=== PATIENT | male | born 1955 | race Caucasian/White ===

== ENCOUNTER 2025-04-26 02:44 | Emergency (ER) | payer OTHER ==
[~2025-04-26] VITALS: Ht 175.2 cm; Wt 132.9 kg
[2025-04-26] MEDS ORDERED: VIBRAMYCIN100 MG PO (03:19)
== END 2025-04-26 03:23 | disposition home or self-care (01) ==
LOC: ED 02:44
DX: L73.2 Hidradenitis suppurativa (principal); Z88.8 Allergy status to other drugs, medicaments and biological substances

== ENCOUNTER 2025-05-11 11:14 | Emergency (ER) | payer OTHER ==
[~2025-05-11] VITALS: Ht 175.2 cm; Wt 136.1 kg
[~2025-05-11 11:14] MED LIST: VIBRAMYCIN100 MG PO
[2025-05-11 12:04] LABS: BASO # 0.1 10*3/uL (0.0-0.1); BASO % 1.2 % (0.0-1.0); EOS # 0.3 10*3/uL (0.0-0.4); EOS % 3.2 % (1.0-4.0); MEAN CELL VOLUME 89.4 fl (80.0-94.0); MEAN CORPUSCULAR HGB 28.6 pg (27.0-31.0); MEAN PLATELET VOLUME 9.5 fl (9.6-12.3); MONO # 0.8 10*3/uL (0.1-1.0); MONO % 7.4 % (3.0-9.0); NEUT # 6.6 10*3/uL (2.3-7.9); NEUT % 65.1 % (47.0-73.0); NUCLEATED RED BLOOD CELL 0.0 % (0.0-0.0); NUCLEATED RED BLOOD CELL 0.0 10*3/uL (0.0-0.0); PLATELET COUNT AUTOMATED 344 10*3/uL (130-400); RED CELL DISTRI WIDTH 15.3 % (0-14.5)
[2025-05-11 12:26] LABS: BUN 17.0 mg/dl (9-23)
[2025-05-11] MEDS ORDERED: SEPTDS PO (13:05)
[2025-05-11] MEDS ORDERED: CEPHALEXIN500 M1 PO (13:05)
[2025-05-11] MEDS ORDERED: Sulfamethoxazole/Trimethopri 1 TAB TAB PO ONE (13:10)
[2025-05-11] MEDS ORDERED: CEPHALEXIN 500 MG CAP PO ONE (13:10)
== END 2025-05-11 13:30 | disposition home or self-care (01) ==
LOC: ED 11:14
PROVIDERS: Nurse Practitioner Family
DX: L03.012 Cellulitis of left finger (principal); E11.65 Type 2 diabetes mellitus with hyperglycemia; Z79.899 Other long term (current) drug therapy; Z88.8 Allergy status to other drugs, medicaments and biological substances